=== PATIENT | female | born 1980 | race Two or more races ===

== ENCOUNTER 2023-09-14 19:20 | Emergency (ER) | payer MEDICAID, OTHER ==
[~2023-09-14] VITALS: Ht 165.1 cm; Wt 59.0 kg
[2023-09-14] MEDS ORDERED: ACETAMINOPHEN ES 500 MG TABLET ONE (20:12)
[2023-09-14] MEDS ORDERED: CYCLOBENZAPRINE 10 MG TABLET ONE (20:13)
[2023-09-14] MEDS: CYCLOBENZAPRINE 10 MG TABLET PO ONE (20:19)
[2023-09-14] MEDS: ACETAMINOPHEN ES 500 MG TABLET PO ONE (20:19)
[2023-09-14 20:24] LABS: PREGNANCY TEST URINE QUAL NEGATIVE (NEGATIVE)
[2023-09-14 20:48] LABS: BASOPHILS # (AUTO) 0.1 K/uL (0.0-0.2); BASOPHILS % (AUTO) 0.8 % (0.0-2.0); EOSINOPHILS # (AUTO) 0.1 K/uL (0.0-0.7); EOSINOPHILS % (AUTO) 1.6 % (0.0-6.0); HEMATOCRIT 36 % (33-45); HEMOGLOBIN 11.5 g/dL (11.5-14.8); LYMPHOCYTES # (AUTO) 2.1 K/uL (0.8-4.8); MEAN CORPUSCULAR HEMOGLOBIN 26 PG (26.0-33.0); MEAN CORPUSCULAR HGB CONC 32 g/dl (31.0-36.0); MEAN CORPUSCULAR VOLUME 80 fL (82-100); MONOCYTES # (AUTO) 0.6 K/uL (0.1-1.30); MONOCYTES % (AUTO) 9.1 % (2.0-12.0); NEUTROPHILS # (AUTO) 3.9 K/uL (1.8-8.9); NEUTROPHILS % (AUTO) 57.5 % (43.0-81.0); PLATELET COUNT (AUTO) 310 K/uL (150-450); RED BLOOD CELL COUNT(AUTO) 4.45 MIL/uL (4.0-5.2); RED CELL DISTRIBUTION WIDTH 14.6 % (11.5-15.0); WHITE BLOOD COUNT (AUTO) 6.7 K/uL (4.3-11.0)
[2023-09-14 21:00] LABS: CALCIUM, SERUM 8.8 mg/dL (8.5-10.1); CARBON DIOXIDE 26 mmol/L (21-32); CHLORIDE 106 mmol/L (98-107); CREATININE 0.6 mg/dL (0.6-1.3); GLUCOSE 87 mg/dL (74-106); POTASSIUM 3.8 mmol/L (3.5-5.1); SODIUM SERUM 139 mmol/L (136-145); UREA NITROGEN, BLOOD 19 mg/dL (7-18)
[2023-09-14] MEDS ORDERED: IBUP-1955 PO (22:07)
[2023-09-14] MEDS ORDERED: CYCL10TA9 PO (22:07)
[2023-09-14 22:14] VITALS: BP 120/75; TEMP 209.1; O2SAT 99
== END 2023-09-14 22:15 | disposition home or self-care (01) ==
LOC: ER 19:25
DX: R51.9 Headache, unspecified (principal); R55 Syncope and collapse; R10.2 Pelvic and perineal pain
CPT/HCPCS: 36415; 70450-TC; 71045-TC; 80048-TC; 84484-TC; 84703-TC; 85025-TC

== ENCOUNTER 2023-10-12 15:52 | Emergency (ER) | payer OTHER ==
[~2023-10-12] VITALS: Ht 170.2 cm; Wt 59.4 kg
[~2023-10-12 15:52] MED LIST: CYCL10TA9 PO; IBUP-1955 PO
[2023-10-12 17:04] LABS: BASOPHILS % (AUTO) 1.2 % (0.0-2.0); EOSINOPHILS # (AUTO) 0.1 K/uL (0.0-0.7); HEMATOCRIT 35 % (33-45); HEMOGLOBIN 11.5 g/dL (11.5-14.8); LYMPHOCYTES # (AUTO) 1.4 K/uL (0.8-4.8); LYMPHOCYTES % (AUTO) 43.7 % (20.0-44.0); MEAN CORPUSCULAR HEMOGLOBIN 26 PG (26.0-33.0); MEAN CORPUSCULAR HGB CONC 33 g/dl (31.0-36.0); MEAN CORPUSCULAR VOLUME 79 fL (82-100); MONOCYTES # (AUTO) 0.4 K/uL (0.1-1.30); MONOCYTES % (AUTO) 13.8 % (2.0-12.0); NEUTROPHILS # (AUTO) 1.3 K/uL (1.8-8.9); NEUTROPHILS % (AUTO) 39.3 % (43.0-81.0); PLATELET COUNT (AUTO) 296 K/uL (150-450); RED BLOOD CELL COUNT(AUTO) 4.42 MIL/uL (4.0-5.2); RED CELL DISTRIBUTION WIDTH 14.6 % (11.5-15.0); WHITE BLOOD COUNT (AUTO) 3.2 K/uL (4.3-11.0)
[2023-10-12 17:17] LABS: CALCIUM, SERUM 8.9 mg/dL (8.5-10.1); CARBON DIOXIDE 26 mmol/L (21-32); CHLORIDE 104 mmol/L (98-107); CREATININE 0.5 mg/dL (0.6-1.3); GLUCOSE 81 mg/dL (74-106); POTASSIUM 3.6 mmol/L (3.5-5.1); SODIUM SERUM 137 mmol/L (136-145); UREA NITROGEN, BLOOD 17 mg/dL (7-18)
[2023-10-12 17:24] LABS: PREGNANCY TEST URINE QUAL NEGATIVE (NEGATIVE)
[2023-10-12] MEDS ORDERED: IBUP-1955 PO (19:16)
[2023-10-12] MEDS ORDERED: GUAI1TBM19 PO (19:16)
[2023-10-12 19:28] VITALS: BP 109/80; TEMP 98.1; O2SAT 100
== END 2023-10-12 19:29 | disposition home or self-care (01) ==
LOC: ER 15:53
DX: R07.9 Chest pain, unspecified (principal); R05.9 Cough, unspecified; Z20.822 Contact with and (suspected) exposure to COVID-19
CPT/HCPCS: 36415; 71045-TC; 80048-TC; 84484-TC; 84703-TC; 85025-TC

== ENCOUNTER 2024-06-02 16:45 | Emergency (ER) | payer MEDICAID, OTHER ==
[~2024-06-02] VITALS: Ht 170.2 cm; Wt 61.2 kg
[~2024-06-02 16:45] MED LIST changes: +GUAI1TBM19 PO
[2024-06-02 16:59] VITALS: TEMP 98.6
[2024-06-02 18:07] LABS: PREGNANCY TEST URINE QUAL NEGATIVE (NEGATIVE)
[2024-06-02] MEDS ORDERED: GUAI5SYR GT (18:44)
[2024-06-02] MEDS ORDERED: AZIT250T13 PO (18:44)
[2024-06-02] MEDS ORDERED: GUAIFENESIN/D-METHORPHAN HB 5 ML UDC ONE (18:52)
[2024-06-02] MEDS ORDERED: AMOX/CLAVULANATE 875 MG TABLET ONE (18:53)
[2024-06-02] MEDS: AMOX/CLAVULANATE 875 MG TABLET PO ONE (18:55)
[2024-06-02] MEDS: GUAIFENESIN/D-METHORPHAN HB 5 ML UDC PO ONE (18:55)
[2024-06-02 19:05] VITALS: BP 120/75; O2SAT 99
== END 2024-06-02 18:58 | disposition home or self-care (01) ==
LOC: ER 16:54
DX: J18.9 Pneumonia, unspecified organism (principal); R05.9 Cough, unspecified; Z87.19 Personal history of other diseases of the digestive system; Z86.69 Personal history of other diseases of the nervous system and sense organs
CPT/HCPCS: 71045-TC; 84703-TC